=== PATIENT | male | born 1980 | race Two or more races ===

== ENCOUNTER → 2024-09-18 | Emergency (ER) | payer OTHER ==
[~2024-09-18] VITALS: Ht 190.5 cm; Wt 102.1 kg
[~2024-09-18] MED LIST: 0.9 % SODIUM CHLORIDE 1,000 ML IV SCH; CEFTRIAXONE SODIUM 2,000 MG VIAL IV ONE; CEFTRIAXONE SODIUM 2,000 MG VIAL IV SCH; CEFTRIAXONE SODIUM 2,000 MG VIAL ONE; CEFTRIAXONE SODIUM 2,000 MG in 0.9 % SODIUM CHLORIDE 100 ML IV SCH; COZAAR100 MG PO; KETOROLAC TROMETHAMINE 30 MG VIAL IV ONE; MORPHINE SULFATE 4 MG/ML VIAL IV ONE; MORPHINE SULFATE 4 MG/ML VIAL IV PRN; ONDANSETRON HCL 2 MG/ML VIAL IV ONE; ONDANSETRON HCL 2 MG/ML VIAL IV SCH; ONDANSETRON HCL 2 MG/ML VIAL ONE; PHENAZOPYRIDINE HCL 100 MG TABLET PO ONE; TAMSULOSIN HCL 0.4 MG CAP PO ONE
[2024-09-18 19:05] LABS: HEMATOCRIT 44.5 % (39.0-48.0); HEMOGLOBIN 15.2 g/dL (13-16.00); MEAN CELL VOLUME 88.1 fL (80.0-100.00); MEAN CORPUSCULAR HEMOGLOBIN 30.1 pg (27.00-32.0); MEAN CORPUSCULAR HGB CONC 34.2 g/dl (32.0-36.0); PLATELET COUNT 257 K/uL (150-450); RED BLOOD COUNT 5.05 M/uL (4.00-6.00); RED CELL DISTRIBUTION WIDTH 13.9 % (11.5-14.5)
[2024-09-18 19:24] LABS: BILIRUBIN TOTAL 0.87 mg/dL (0.3-1.2); CALCIUM 9.7 mg/dL (8.5-10.1); CREATININE SERUM 1.82 mg/dL (0.70-1.30); GFR 40.67; GLOBULINA 3.8 G/DL (2.4-3.5); POTASSIUM 3.8 mEq/L (3.5-5.1); TOTAL PROTEIN 7.8 gm/dL (6.4-8.2)
[2024-09-18 20:25] LABS: PH,URINE 5.5 (5.0-8.0); URINE APPEARANCE Clear; URINE BILIRRUBIN Negative (NEGATIVE); URINE BLOOD Moderate; URINE COLOR Yellow; URINE GLUCOSE Negative (NEGATIVE); URINE LEUKOCYTE Trace; URINE NITRATE Negative; URINE PROTEIN Negative (NEGATIVE); URINE UROBILINOGEN 0.2 E.U./dl
[2024-09-18 20:26] LABS: URINE BACTERIA 86.8 uL (0.0-1933); URINE EPITHELIAL CELLS 5.3 uL (0.0-38.8); URINE RBC 46.2 uL (0.0-20.8); URINE WBC 19.4 uL (0.0-23.2)
[2024-09-18 20:33] LABS: URINE KETONE 40 (NEGATIVE)
== END | disposition left against medical advice (07) ==
LOC: ER 18:30
PROVIDERS: General Practice
DX: N20.1 Calculus of ureter (principal); R10.9 Unspecified abdominal pain; Z88.0 Allergy status to penicillin; Z88.5 Allergy status to narcotic agent